=== PATIENT | female | born 1935 | race Caucasian/White ===

== ENCOUNTER 2017-05-30 06:38 | Emergency (ER) | payer MEDICARE, OTHER ==
[~2017-05-30] VITALS: Wt 71.0 kg
[2017-05-30] MEDS ORDERED: VANCOMYCIN 1.25 GM in SOD CHLORIDE 0.9% 250 ML IVPB ONE (07:30)
[2017-05-30] MEDS ORDERED: CEFTRIAXONE 1 GM/50 ML (PMX) 50 ML IVPB ONE (07:30)
[2017-05-30 07:51] LABS: INR 1.69; PT RATIO 1.6
[2017-05-30 08:04] LABS: BASOPHILS % 0.3 % (0.0-2.0); EOSINOPHILS # 0.1 10^3/ul (0.0-0.5); EOSINOPHILS % 0.8 % (0.0-7.0); HEMATOCRIT 33.8 % (37.0-47.0); LYMPHOCYTES # 2.2 10^3/ul (0.8-2.9); LYMPHOCYTES % 22.3 % (15.0-51.0); MEAN CORPUSCULAR HEMOGLOBIN 31.8 pg (29.0-33.0); MEAN CORPUSCULAR HGB CONC 32.5 g/dl (32.0-37.0); MEAN CORPUSCULAR VOLUME 97.7 fl (82.0-101.0); MEAN PLATELET VOLUME 10.5 fl (7.4-10.4); MONOCYTE # 0.8 10^3/ul (0.3-0.9); MONOCYTES % 8.7 % (0.0-11.0); NEUTROPHIL # 6.5 10^3/ul (1.6-7.5); NEUTROPHILS % 67.4 % (39.0-77.0); PLATELET COUNT 216 10^3/UL (140-415); RED BLOOD COUNT 3.46 10^6/ul (4.20-5.40); RED CELL DISTRIBUTION WIDTH 13.7 % (11.5-14.5); WHITE BLOOD COUNT 9.6 10^3/ul (4.8-10.8)
[2017-05-30 08:06] LABS: ALANINE AMINOTRANSFERASE 26 IU/L (13-69); ALBUMIN 4.8 g/dl (3.3-4.9); ALKALINE PHOSPHATASE 75 IU/L (42-121); ANION GAP 13 (8-16); ASPARTATE AMINO TRANSFERASE 22 IU/L (15-46); BILIRUBIN,INDIRECT 0.5 mg/dl (0-1.1); BILIRUBIN,TOTAL 0.5 mg/dl (0.2-1.3); BLOOD UREA NITROGEN 19 mg/dl (7-20); CALCIUM 9.4 mg/dl (8.4-10.2); CARBON DIOXIDE 26 mmol/L (21-31); CHLORIDE 105 mmol/L (97-110); CREATININE 0.65 mg/dl (0.44-1.00); GLUCOSE 124 mg/dl (70-220); POTASSIUM 3.8 mmol/L (3.5-5.1); SODIUM 140 mmol/L (135-144); TOTAL PROTEIN 7.8 g/dl (6.1-8.1)
[2017-05-30 08:08] LABS: ADD SCAN DIFF NO
[2017-05-30 08:20] LABS: TROPONIN-I < 0.012 ng/ml (0.00-0.12)
--- NOTE | 2017-05-30 08:25 | RADRPT ---
PROCEDURE: CT scan facial bones CLINICAL INDICATION: Facial swelling, pain, cellulitis. TECHNIQUE: CT scan of the face was performed on the a high-resolution multidetector CT scanner wit h multiple contiguous axial images obtained through the face. Coronal and sagittal reformatted imag es were obtained from the axial source images. One or more the following does reduction techniques w ere utilized: Automated exposure control, adjustment of the mA/ or kV according to patient's size, o r use of iterative reconstruction technique. Exam CTDI = 29.46 mGy and the DLP = 521.85 mGy-cm. COMPARISON: None available. FINDINGS: The study is suboptimal due to absence of intravenous contrast. There is moderate left periorbital soft tissue swelling measuring up to 2 cm in thickness. There is no intraconal fat stranding or inflammatory changes. No acute fracture or dislocation is seen. There is thinning of right lens indicative of prior lens r eplacement. The orbital globes are otherwise unremarkable. Nasal septum is intact. Paranasal sinuse s demonstrate moderate mucosal thickening in the maxillary sinuses and mild scattered mucosal thicke lisa mainly in ethmoid air cells. IMPRESSION: 1. Moderate left periorbital soft tissue swelling, , correlate for cellulitis. No intraconal fat st randing or inflammatory changes. 2. Mild to moderate paranasal sinus disease. RPTAT: PP .Whitney Valdivia MD, MD Date Time Electronically viewed and signed by .Whitney Valdivia MD, MD on 05/30/2017 08:25 .N/
[2017-05-30 09:26] VITALS: BP 118/68; PULSE 85; RESP 20
--- NOTE | 2017-05-30 11:22 | ERA ---
ER Documentation Chief Complaint Date/Time DATE: 05/30/17 TIME: 11:15 Chief Complaint LEFT EYE PAIN AND REDNESS WITH MODERATE SWELLING, UNABLE TO OPEN. 2 DAYS HPI This 82-year-old female presents to the emergency room with her son for evaluation of left eye pain and redness. According to the son the patient is complaining of pain in her left eye for the past 2 days, and today he noted some pus draining from around the eye so he brought the patient in for evaluation. She denies any blurred vision associated with this and states that her pain has subsided now that the area has started to drain ROS All systems reviewed and are negative except as per history of present illness. PMhx/Soc Medical and Surgical Hx: pt denies Medical Hx, pt denies Surgical Hx Hx Alcohol Use: No Hx Substance Use: No Hx Tobacco Use: No Smoking Status: Never smoker Physical Exam Vitals Vital Signs Date Time Temp Pulse Resp B/P Pulse Ox O2 Delivery O2 Flow Rate FiO2 05/30/17 09:26 85 20 118/68 98 Nasal Cannula 2.0 05/30/17 09:22 Nasal Cannula 2 05/30/17 06:44 99.8 69 20 138/71 98 Physical Exam INITIAL VITAL SIGNS: Reviewed by me GENERAL: The patient is well developed and appropriate for usual state of health in no apparent distress HEENT: Left-sided lacrimal duct swelling, erythema, and large area of cellulitis surrounding the left periorbital region, no impingement of extraocular muscles, pupils equal, round, and reactive to light. EOMI. There is no scleral icterus. NECK: C-spine is soft and supple, there is no meningismus. There is no cervical lymphadenopathy. LUNGS: Clear to auscultation bilaterally. There are no rales, wheezes or rhonchi. HEART: Regular rate and rhythm, no murmurs, clicks, rubs or gallops. ABDOMEN: Soft, non-tender, non-distended. There are bowel sounds in all four quadrants. No rebound or guarding. EXTREMITIES: There is no peripheral cyanosis or edema. No focal swelling or erythema. NEUROLOGICAL: The patient moves all four extremities with 5/5 strength. Cranial nerves II - XII are intact. Normal gait. Alert and oriented SKIN: There is no apparent rash or petechiae. HEME/LYMPHATIC: There is no evidence of excessive bruising or lymphedema. PSYCHIATRIC: The patient does not appear anxious or depressed. Result Diagram: 05/30/17 0645 05/30/17 0645 Results 24 hrs Laboratory Tests Test 05/30/17 06:45 05/30/17 08:59 White Blood Count 9.610^3/ul Red Blood Count 3.4610^6/ul Hemoglobin 11.0g/dl Hematocrit 33.8% Mean Corpuscular Volume 97.7fl Mean Corpuscular Hemoglobin 31.8pg Mean Corpuscular Hemoglobin Concent 32.5g/dl Red Cell Distribution Width 13.7% Platelet Count 34152^3/UL Mean Platelet Volume 10.5fl Neutrophils % 67.4% Lymphocytes % 22.3% Monocytes % 8.7% Eosinophils % 0.8% Basophils % 0.3% Nucleated Red Blood Cells % 0.0/100WBC Neutrophils # 6.510^3/ul Lymphocytes # 2.210^3/ul Monocytes # 0.810^3/ul Eosinophils # 0.110^3/ul Basophils # 0.010^3/ul Nucleated Red Blood Cells # 0.010^3/ul Prothrombin Time 20.0Sec Prothrombin Time Ratio 1.6 INR International Normalized Ratio 1.69 Activated Partial Thromboplast Time 36.0Sec Sodium Level 140mmol/L Potassium Level 3.8mmol/L Chloride Level 105mmol/L Carbon Dioxide Level 26mmol/L Anion Gap 13 Blood Urea Nitrogen 19mg/dl Creatinine 0.65mg/dl Glucose Level 124mg/dl Lactic Acid Level 0.9mmol/L 0.9mmol/L Calcium Level 9.4mg/dl Total Bilirubin 0.5mg/dl Direct Bilirubin 0.00mg/dl Indirect Bilirubin 0.5mg/dl Aspartate Amino Transf (AST/SGOT) 22IU/L Alanine Aminotransferase (ALT/SGPT) 26IU/L Alkaline Phosphatase 75IU/L Troponin I < 0.012ng/ml Total Protein 7.8g/dl Albumin 4.8g/dl Globulin 3.00g/dl Albumin/Globulin Ratio 1.60 Current Medications Medications (Trade) Dose Ordered Sig/Chelsey Route PRN Reason Start Time Stop Time Status Last Admin Dose Admin Vancomycin HCl 1.25 gm/Sodium Chloride 250 ml @ 83.333 mls/ hr ONCE ONCE IVPB 05/30/17 07:30 05/30/17 10:29 DC 05/30/17 08:59 Ceftriaxone Sodium (Rocephin) 50 ml @ 100 mls/hr ONCE ONCE IVPB 05/30/17 07:30 05/30/17 07:59 DC 05/30/17 07:29 Procedures/MDM CT face: 1. Moderate left periorbital soft tissue swelling, , correlate for cellulitis. No intraconal fat stranding or inflammatory changes. 2. Mild to moderate paranasal sinus disease. EKG: Rate/Rhythm: [Normal Sinus Rhythm] QRS, ST, T-waves: [No changes consistent w/ acute ischemia] Impression: [No evidence of ischemia or arrhythmia] This 82-year-old female presents to the emergency room for evaluation of left eye pain and swelling. When I evaluated this patient I did note a large area of periorbital cellulitis around the left eye with deven pus coming out of the lacrimal duct system. The patient had a CAT scan which does not show any signs of orbital cellulitis. This patient is suffering from dacryocystitis which is caused periorbital cellulitis. I have tried to contact rotor casting machine operator dr. Jenkins however his covering physician does not have privileges at this hospital. Multiple other phone calls were made to rotor casting machine operator in the surrounding area however I was unable to obtain an official consult. Since there is no ophthalmology call schedule this patient will be a MAC transfer. She was accepted out [facility] under Departure Diagnosis: Primary Impression: Dacryocystitis, left Additional Impression: Periorbital cellulitis of left eye Condition: Stable NIYA PÉREZ DO May 30, 2017 11:22
== END 2017-05-30 14:24 | disposition short-term general hospital (02) ==
LOC: E/R 06:38
DX: H04.302 Unspecified dacryocystitis of left lacrimal passage (principal); L03.213 Periorbital cellulitis
CPT/HCPCS: 70486; 80053; 83605; 84484; 85025; 85610; 85730; 87040; J0696; J3370; J7050; 36415; 93005; 96374; 96375

== ENCOUNTER 2017-10-29 23:35 | Emergency (ER) | payer MEDICARE, OTHER ==
[~2017-10-29] VITALS: Ht 167.6 cm; Wt 68.0 kg
[2017-10-29 23:55] VITALS: Ht 167.6 cm; Wt 68.0 kg
[2017-10-29] MEDS ORDERED: ESOM40CA PO (23:56)
[2017-10-29] MEDS ORDERED: CARV12.598 PO (23:56)
[2017-10-30] MEDS ORDERED: BENICAR PO
[2017-10-30] MEDS ORDERED: PROP20TA4 PO
[2017-10-30] MEDS ORDERED: DOXE3TAB3 PO
[2017-10-30] MEDS ORDERED: HCT PO
[2017-10-30] MEDS ORDERED: CLOP75TA27 PO (00:01)
--- NOTE | 2017-10-30 00:05 | ERD ---
ER Documentation Chief Complaint Chief Complaint AP HPI The patient is a 82-year-old female, presenting to the ER because of right- sided abdominal pain that began about 10 PM. She had similar symptoms previously, denies fever, chills, neck pain, chest pain, dyspnea, vomiting, dysuria, diarrhea. She had a colonoscopy about 2 years ago where she had polypectomy, smoke nor drink. Medical history: Hypertension, CAD, A Fib Surgical history: Stent PCI, eye surgery ROS All systems reviewed and are negative except as per history of present illness. Medications Home Meds Active Scripts Acetaminophen* (Acetaminophen*) 650 Mg Tablet, 650 MG PO Q6H Y for PAIN AND OR ELEVATED TEMP, #30 TAB Prov:TRAVIS JANE MD 10/30/17 Reported Medications Clopidogrel Bisulfate (Clopidogrel) 75 Mg Tablet, 75 MG PO DAILY, #30 TAB 10/30/17 Propranolol Hcl* (Propranolol Hcl*) 20 Mg Tablet, 20 MG PO BID, TAB 10/30/17 Doxepin Hcl* (Silenor*) 3 Mg Tablet, 3 MG PO HS Y for INSOMNIA, TAB 10/30/17 [Benicar/Hct 40-12.5] No Conflict Check, 1 TAB PO DAILY 10/30/17 Esomeprazole Mag Trihydrate (Nexium) 40 Mg Capsule.dr, 40 MG PO DAILY, #30 CAP 10/29/17 Carvedilol* (Coreg*) 12.5 Mg Tablet, 12.5 MG PO BID, #60 TAB 10/29/17 Allergies Allergies: Coded Allergies: No Known Allergy (Unverified , 10/29/17) PMhx/Soc Hx Alcohol Use: No Hx Substance Use: No Hx Tobacco Use: No Physical Exam Vitals Vital Signs Date Time Temp Pulse Resp B/P Pulse Ox O2 Delivery O2 Flow Rate FiO2 10/30/17 02:13 55 24 130/63 97 Room Air 10/30/17 00:43 47 16 148/72 99 Room Air 10/29/17 23:55 98.2 63 20 168/80 96 Physical Exam Const: No acute distress. Head: Atraumatic. Eyes: Normal Conjunctiva. ENT: Normal External Ears, Nose and Mouth. Neck: Full range of motion. No meningismus. Resp: Clear to auscultation bilaterally. Cardio: Irregularly irregular Abd: Soft, non distended, normal bowel sounds, minimal and vague right -sided abdominal discomfort. Rigidity, rebound, CVA tenderness Skin: No petechiae or rashes. Back: No midline or flank tenderness. Ext: No cyanosis, or edema. Neur: Awake and alert. No focal deficit Psych: Normal Mood and Affect. Result Diagram: 10/30/17 0041 10/30/1740 Results 24 hrs Laboratory Tests Test 10/30/17 00:41 White Blood Count 9.510^3/ul Red Blood Count 3.3210^6/ul Hemoglobin 10.4g/dl Hematocrit 32.4% Mean Corpuscular Volume 97.6fl Mean Corpuscular Hemoglobin 31.3pg Mean Corpuscular Hemoglobin Concent 32.1g/dl Red Cell Distribution Width 14.6% Platelet Count 74888^3/UL Mean Platelet Volume 10.1fl Neutrophils % 74.2% Lymphocytes % 18.4% Monocytes % 6.0% Eosinophils % 0.7% Basophils % 0.2% Nucleated Red Blood Cells % 0.0/100WBC Neutrophils # 7.110^3/ul Lymphocytes # 1.810^3/ul Monocytes # 0.610^3/ul Eosinophils # 0.110^3/ul Basophils # 0.010^3/ul Nucleated Red Blood Cells # 0.010^3/ul Sodium Level 141mmol/L Potassium Level 3.7mmol/L Chloride Level 104mmol/L Carbon Dioxide Level 31mmol/L Anion Gap 10 Blood Urea Nitrogen 22mg/dl Creatinine 0.79mg/dl Glucose Level 118mg/dl Calcium Level 9.5mg/dl Total Bilirubin 0.2mg/dl Direct Bilirubin 0.00mg/dl Indirect Bilirubin 0.2mg/dl Aspartate Amino Transf (AST/SGOT) 25IU/L Alanine Aminotransferase (ALT/SGPT) 38IU/L Alkaline Phosphatase 66IU/L Total Protein 7.2g/dl Albumin 3.9g/dl Globulin 3.30g/dl Albumin/Globulin Ratio 1.18 Lipase 69U/L Current Medications Medications (Trade) Dose Ordered Sig/Chelsey Route PRN Reason Start Time Stop Time Status Last Admin Dose Admin Morphine Sulfate (morphine) 2 mg ONCE STAT IV 10/30/17 00:55 10/30/17 00:56 DC 10/30/17 01:19 Ondansetron HCl (Zofran Inj) 4 mg ONCE STAT IV 10/30/17 00:55 10/30/17 00:56 DC 10/30/17 01:18 Acetaminophen/ Hydrocodone Bitart (Brady (5/325)) 1 tab ONCE ONCE PO 10/30/17 04:00 10/30/17 04:08 DC 10/30/17 04:11 Procedures/MDM [place] [address] Radiology Main Line: [phone] DIAGNOSTIC IMAGING REPORT Patient: PILI JOSE : 1935 Age: 82 Sex: F MR #: [id number] DOS: 10/30/17 0018 Ordering MD: TRAVIS JANE MD Location: E/R Room/Bed: PROCEDURE: CT Abdomen and Pelvis without contrast. CLINICAL INDICATION: Abdominal pain. TECHNIQUE: A CT scan of the abdomen and pelvis was performed without intravenous contrast. Coronal and sagittal reformatted images were generated. DICOM images are available. Images were reviewed on a high-resolution PACS workstation. CTDIvol: 12.57 mGy. DLP: 727.96 mGy-cm. One or more of the following dose reduction techniques were used: - Automated exposure control. - Adjustment of the mA and/or kV according to patient size. - Use of iterative reconstruction technique. COMPARISON: None. FINDINGS: There are atelectatic changes in the lower lungs. The heart is enlarged. Evaluation of the abdominal and pelvic viscera is limited by the lack of oral and intravenous contrast. The liver is unremarkable. The gallbladder is normal in appearance. The common bile duct is not dilated. The spleen is not enlarged. No pancreatic lesion is identified and there is no pancreatic ductal dilatation. The adrenal glands are unremarkable. The kidneys are normal in size. There is no perinephric fat stranding. No hydronephrosis is seen. No urinary stone is identified. There are cysts in both kidneys measuring up to 2.7 cm on the right. The small and large bowel are normal in caliber. There is no bowel wall thickening. There is minimal colonic diverticulosis. The appendix is normal. The urinary bladder is unremarkable. The pelvic organs are within normal limits. No lymphadenopathy is identified. There is no ascites. No pneumoperitoneum is seen. There are mild arterial calcifications. No suspicious osseous lesion is idenitified. IMPRESSION: 1. No inflammation, mass, or lymphadenopathy. 2. No obstructive uropathy or urinary stone. 3. Normal appendix. 4. Mild atherosclerotic arterial calcifications. 5. Cardiomegaly. RPTAT: HTAR .Karlo Wheeler MD, Date Time Electronically viewed and signed by .Karlo Wheeler MD, MD on 10/30/2017 01:51 .R/ CC: TRAVIS JANE MD EKG: Read by emergency physician Rate/Rhythm: Atrial Fibrillations 68 beats/min QRS, ST, T-waves: No ST elevation, no T inversion Impression: Normal EKG MEDICAL MAKING DECISION: The patient is a 82-year-old female, presenting with acute abdominal pain of unclear etiology. She was treated with morphine 2 mg IV for pain Zofran formulary for nausea and Brady 5 mg p.o. for pain with good response The differential diagnoses considered include but are not limited to cholelithiasis, cholecystitis, cystitis, pancreatitis, hepatitis, gastritis, peptic ulcer disease, gastric ulcer, appendicitis, diverticulitis, cholangitis, choledocholithiasis, partial small bowel obstruction. Departure Diagnosis: Primary Impression: Abdominal pain Additional Impression: Anemia Condition: Good Comments She was discharged with Tylenol I discussed the findings with the patient. I advised the patient to follow-up with the primary physician in about 1-2 days, sooner if needed and return if any concern. Disclaimer: Inadvertent spelling and grammatical errors are likely due to EHR/ dictation software use and do not reflect on the overall quality of patient care. Also, please note that the electronic time recorded on this note does not necessarily reflect the actual time of the patient encounter. TRAVIS JANE MD Oct 30, 2017 00:05
[2017-10-30] MEDS ORDERED: morphine 2 MG INJ IV STA (00:55)
[2017-10-30] MEDS ORDERED: ONDANSETRON 4 MG INJ IV STA (00:55)
[2017-10-30 01:30] LABS: BASOPHILS % 0.2 % (0.0-2.0); EOSINOPHILS # 0.1 10^3/ul (0.0-0.5); EOSINOPHILS % 0.7 % (0.0-7.0); HEMATOCRIT 32.4 % (37.0-47.0); HEMOGLOBIN 10.4 g/dl (12.0-16.0); LYMPHOCYTES # 1.8 10^3/ul (0.8-2.9); LYMPHOCYTES % 18.4 % (15.0-51.0); MEAN CORPUSCULAR HEMOGLOBIN 31.3 pg (29.0-33.0); MEAN CORPUSCULAR HGB CONC 32.1 g/dl (32.0-37.0); MEAN CORPUSCULAR VOLUME 97.6 fl (82.0-101.0); MEAN PLATELET VOLUME 10.1 fl (7.4-10.4); MONOCYTE # 0.6 10^3/ul (0.3-0.9); NEUTROPHIL # 7.1 10^3/ul (1.6-7.5); NEUTROPHILS % 74.2 % (39.0-77.0); PLATELET COUNT 190 10^3/UL (140-415); RED BLOOD COUNT 3.32 10^6/ul (4.20-5.40); RED CELL DISTRIBUTION WIDTH 14.6 % (11.5-14.5); WHITE BLOOD COUNT 9.5 10^3/ul (4.8-10.8)
[2017-10-30 01:46] LABS: ALBUMIN 3.9 g/dl (3.3-4.9); ALBUMIN/GLOBULIN RATIO 1.18; BILIRUBIN,INDIRECT 0.2 mg/dl (0-1.1); BILIRUBIN,TOTAL 0.2 mg/dl (0.2-1.3); CALCIUM 9.5 mg/dl (8.4-10.2); CREATININE 0.79 mg/dl (0.44-1.00); POTASSIUM 3.7 mmol/L (3.5-5.1); TOTAL PROTEIN 7.2 g/dl (6.1-8.1)
--- NOTE | 2017-10-30 01:52 | RADRPT ---
PROCEDURE: CT Abdomen and Pelvis without contrast. CLINICAL INDICATION: Abdominal pain. TECHNIQUE: A CT scan of the abdomen and pelvis was performed without intravenous contrast. Silva l and sagittal reformatted images were generated. DICOM images are available. Images were reviewed o n a high-resolution PACS workstation. CTDIvol: 12.57 mGy. DLP: 727.96 mGy-cm. One or more of the following dose reduction techniques were used: - Automated exposure control. - Adjustment of the mA and/or kV according to patient size. - Use of iterative reconstruction technique. COMPARISON: None. FINDINGS: There are atelectatic changes in the lower lungs. The heart is enlarged. Evaluation of the abdominal and pelvic viscera is limited by the lack of oral and intravenous contra st. The liver is unremarkable. The gallbladder is normal in appearance. The common bile duct is not dila sree. The spleen is not enlarged. No pancreatic lesion is identified and there is no pancreatic ducta l dilatation. The adrenal glands are unremarkable. The kidneys are normal in size. There is no perinephric fat stranding. No hydronephrosis is seen. No urinary stone is identified. There are cysts in both kidneys measuring up to 2.7 cm on the right. The small and large bowel are normal in caliber. There is no bowel wall thickening. There is minimal colonic diverticulosis. The appendix is normal. The urinary bladder is unremarkable. The pelvic organs are within normal limits. No lymphadenopathy is identified. There is no ascites. No pneumoperitoneum is seen. There are mild a rterial calcifications. No suspicious osseous lesion is idenitified. IMPRESSION: 1. No inflammation, mass, or lymphadenopathy. 2. No obstructive uropathy or urinary stone. 3. Normal appendix. 4. Mild atherosclerotic arterial calcifications. 5. Cardiomegaly. RPTAT: HTAR .Karlo Wheeler MD, MD Date Time Electronically viewed and signed by .Karlo Wheeler MD, on 10/30/2017 01:51 .R/
[2017-10-30] MEDS ORDERED: ACET-2047 PO (03:15)
[2017-10-30] MEDS ORDERED: HYDROCODONE/APAP (5/325) TAB PO ONE (04:00)
[2017-10-30 04:26] VITALS: BP 129/87; PULSE 59; RESP 18
== END 2017-10-30 04:26 | disposition home or self-care (01) ==
LOC: E/R 23:35
DX: R10.9 Unspecified abdominal pain (principal); D64.9 Anemia, unspecified; I10 Essential (primary) hypertension; I25.10 Atherosclerotic heart disease of native coronary artery without angina pectoris; Z98.61 Coronary angioplasty status; Z79.01 Long term (current) use of anticoagulants
CPT/HCPCS: 36415; 74176; 80053; 83690; 85025; 93005; 96374; 96375; 99285; J2270; J2405

== ENCOUNTER 2018-11-15 12:20 | Inpatient (IN) | END 2018-11-19 16:24 | DRG 65 ==